=== PATIENT | female | born 1950 | race Caucasian/White ===

== ENCOUNTER → 2018-09-02 17:56 | Outpatient (CLI) | payer MEDICARE, OTHER, SELFPAY ==
[2018-09-02 18:48] LABS: Blood Urea Nitrogen 19 mg/dL (7-17); Calcium 9.6 mg/dL (8.4-10.2); Carbon Dioxide 33 mmol/L (22-32); Chloride 99 mmol/L (98-107); Estimated Glomerular Filt Rate 55.3 mL/min (>60); Glucose 93 mg/dL (80-110); HEMOLYSIS < 15 (0-50); Potassium 3.7 mmol/L (3.4-5.1); Sodium 140 mmol/L (137-145)
== END ==
PROVIDERS: Visit Provider Physician Assistant
DX: I10 Essential (primary) hypertension (principal)
CPT/HCPCS: 36415; 80048

== ENCOUNTER 2018-12-31 06:05 | Emergency (ER) | payer MEDICARE, OTHER, SELFPAY ==
[2018-12-31] VITALS (9 sets, daily range): BP systolic 151–201; BP diastolic 66–99; PULSE 46–71; RESP 13–18; TEMP 36.3; O2SAT 95–99; BMI 34.3
--- NOTE | 2018-12-31 06:15 | DI.RAD.S_ITS ---
PROCEDURE: XR CHEST 1V INDICATIONS: chest pain TECHNIQUE: One view of the chest was acquired. COMPARISON: [facility], , CHEST 1 VIEW, 03/15/2017, 8:26. FINDINGS: Surgical changes and devices: None. Lungs and pleura: Lungs are clear. No pleural effusions or pneumothorax. Mediastinum: Mediastinal contours appear normal. Heart size is normal. Bones and chest wall: No suspicious bony lesions. Degenerative spurring of the thoracic spine. Overlying soft tissues appear unremarkable. IMPRESSION: No acute cardiopulmonary disease. Dictated by: Edelmira Weiss M.D. on 12/31/2018 at 7:57 Approved by: Edelmira Weiss M.D. on 12/31/2018 at 7:58
--- NOTE | 2018-12-31 06:21 | ED_ITS ---
HPI - Chest Pain <Kalina Dodson DO - Last Filed: 12/31/18 07:31> General Chief Complaint: Chest Pain Stated Complaint: THINKS HEART ATTACK ACHE LEFT ARM/ODD FEELING CHES Time Seen by Provider: 12/31/18 06:09 Source: patient Mode of arrival: Ambulatory Limitations: no limitations History of Present Illness HPI narrative: Patient is a 68-year-old female with history of hypertension who presents with chest discomfort. She says she was driving to [place] when she felt fluttering in her chest. She denies any actual pain she just has some discomfort are chest and neck. She denies any shortness of breath she does feel nauseous. He denies any abdominal pain no dizziness or lightheadedness. She has never felt this before. No known history of coronary artery disease. MD complaint: chest pain Onset (ago): minute(s) Duration: constant Onset: during rest Pain radiation: none Relieving factors: nothing Related Data Home Medications Medication Instructions Recorded Confirmed aspirin 325 mg PO QDAY #0 03/15/17 09/02/18 lisinopril 40 mg PO QDAY #0 03/15/17 09/02/18 Previous Rx's Medication Instructions Recorded chlorthalidone 25 mg tablet 25 mg PO DAILY #30 tab 09/02/18 Allergies Allergy/AdvReac Type Severity Reaction Status Date / Time No Known Allergies Allergy Verified 12/31/18 06:20 Review of Systems <DO Boo Finnegan Last Filed: 12/31/18 07:31> Review of Systems Narrative: GENERAL: Denies chills, fatigue, malaise, fever, sweats, travel HEENT: Denies sinus pain, ear pain, sore throat, difficulty swallowing, neck pain RESPIRATORY: Denies dyspnea, cough, wheezing, hemoptysis, sputum. CARDIOVASCULAR: See HPI GASTROINTESTINAL: Denies nausea, vomiting, abdominal pain, diarrhea, constipation, melena. : Denies dysuria, frequency, incontinence, hematuria, urinary retention, flank pain. MUSCULOSKELETAL: Denies weakness, joint pain, or bony pain SKIN: No rash, no erythema, no pruritus NEUROLOGIC: Denies weakness, dizziness, headache, numbness, change in speech, confusion PSYCHIATRIC: No concerning psychosocial issues. 12 point review of systems is negative except for those stated above and HPI PFSH <Kalina Dodson DO - Last Filed: 12/31/18 07:31> Medical History Chest pain (Acute) Hypertension (Inactive) Social History Smoking Status: Never smoker Social History (Updated 12/31/18 @ 06:30 by Kalina Dodson DO) Smoking Status: Never smoker alcohol intake: never substance use type: does not use Exam <DO Boo Finnegan Last Filed: 12/31/18 07:31> Initial Vital Signs Initial Vital Signs: Vital Signs Blood Pressure 201/94 H 12/31/18 06:25 GENERAL: Well-appearing, well-nourished and in no acute distress. HEENT: Head atraumatic,EOMI, pupils reactive, face symmetric, moist mucous membranes CARDIOVASCULAR: Regular rate and rhythm without murmurs, rubs or gallops. RESPIRATORY: Breath sounds equal bilaterally, no wheezes rales or rhonchi. ABDOMEN: Soft, nontender. Normoactive bowel sounds all 4 quadrants. No guarding or rebound. EXTREMITIES: Normal range of motion, no clubbing or edema. Neurovascularly intact NEUROLOGICAL: Alert and oriented x4.Normal gait and speech. Cranial nerves II through XII grossly intact. SKIN: Warm, dry, no laceration, no petechiae, no rashes or lesions. <García Cross DO - Last Filed: 12/31/18 10:09> Initial Vital Signs Initial Vital Signs: Vital Signs Blood Pressure 201/94 H 12/31/18 06:25 Scores <Kalina Dodson DO - Last Filed: 12/31/18 07:31> HEART Score Heart Score history: Slightly Suspicious Heart Score EKG: Normal Heart Score Age: > or = 65 years old Heart Score risk factors: 1-2 risk factors Heart Score troponin: < or = to normal limit Heart Score Total: 3 Course <DO Boo Finnegan Last Filed: 12/31/18 07:31> Orders Ordered: ED Orders 12/31/18 06:15 XR chest 1V Stat EKG-12 Lead Stat 12/31/18 06:19 Complete Blood Count AUTO DIFF Stat Comprehensive Metabolic Panel Stat Lipase Stat Troponin & CK Cardiac Panel Stat 12/31/18 09:06 Troponin I Stat Discontinued Medications Aspirin (Aspirin Chew) 324 mg PO NOW ONE Stop: 09/20/19 06:16 Last Admin: 12/31/18 06:25 Dose: 324 mg Documented by: KAYLA Sodium Chloride (Normal Saline 0.9%) 1,000 mls @ 150 mls/hr IV CONT JERICHO Last Infusion: 12/31/18 10:02 Dose: 0 mls/hr Documented by: Admin: 12/31/18 07:13 Dose: 150 mls/hr Documented by: GREGORIA Nitroglycerin (Nitrostat) 0.4 mg SL [id number] PRN PRN Reason: Chest Pain Last Admin: 12/31/18 06:37 Dose: 0.4 mg Documented by: Admin: 12/31/18 06:30 Dose: 0.4 mg Documented by: Admin: 12/31/18 06:25 Dose: 0.4 mg Documented by: KAYLA Vital Signs Vital signs: Vital Signs - 8 hr 12/31/18 06:25 12/31/18 06:30 12/31/18 06:34 Temperature 97.3 F L Pulse Rate 69 Respiratory Rate 18 Blood Pressure 201/94 H 185/90 H 201/94 H Blood Pressure [Left Wrist] Pulse Oximetry 95 12/31/18 06:37 12/31/18 06:45 12/31/18 07:00 Temperature Pulse Rate 71 48 L Respiratory Rate 18 18 Blood Pressure 151/99 H Blood Pressure [Left Wrist] 153/91 H 156/80 H Pulse Oximetry 99 97 12/31/18 08:19 12/31/18 09:54 12/31/18 10:02 Temperature Pulse Rate 47 L 47 L 46 L Respiratory Rate 14 13 15 Blood Pressure 188/73 H Blood Pressure [Left Wrist] 164/66 H 188/73 H Pulse Oximetry 97 99 98 <García Cross, DO - Last Filed: 12/31/18 10:09> Course Course Narrative: Received in sign-out from Dr. Dodson. Independently reviewed history, physical and physical exam. Patient continues to be symptom-free Orders Ordered: ED Orders 12/31/18 06:15 XR chest 1V Stat EKG-12 Lead Stat 12/31/18 06:19 Complete Blood Count AUTO DIFF Stat Comprehensive Metabolic Panel Stat Lipase Stat Troponin & CK Cardiac Panel Stat 12/31/18 09:06 Troponin I Stat Discontinued Medications Aspirin (Aspirin Chew) 324 mg PO NOW ONE Stop: 12/31/18 06:16 Last Admin: 12/31/18 06:25 Dose: 324 mg Documented by: KAYLA Sodium Chloride (Normal Saline 0.9%) 1,000 mls @ 150 mls/hr IV CONT JERICHO Last Infusion: 12/31/18 10:02 Dose: 0 mls/hr Documented by: Admin: 12/31/18 07:13 Dose: 150 mls/hr Documented by: GREGORIA Nitroglycerin (Nitrostat) 0.4 mg SL [id number] PRN PRN Reason: Chest Pain Last Admin: 12/31/18 06:37 Dose: 0.4 mg Documented by: Admin: 12/31/18 06:30 Dose: 0.4 mg Documented by: Admin: 12/31/18 06:25 Dose: 0.4 mg Documented by: KAYLA Vital Signs Vital signs: Vital Signs - 8 hr 12/31/18 06:25 12/31/18 06:30 12/31/18 06:34 Temperature 97.3 F L Pulse Rate 69 Respiratory Rate 18 Blood Pressure 201/94 H 185/90 H 201/94 H Blood Pressure [Left Wrist] Pulse Oximetry 95 12/31/18 06:37 12/31/18 06:45 12/31/18 07:00 Temperature Pulse Rate 71 48 L Respiratory Rate 18 18 Blood Pressure 151/99 H Blood Pressure [Left Wrist] 153/91 H 156/80 H Pulse Oximetry 99 97 12/31/18 08:19 12/31/18 09:54 12/31/18 10:02 Temperature Pulse Rate 47 L 47 L 46 L Respiratory Rate 14 13 15 Blood Pressure 188/73 H Blood Pressure [Left Wrist] 164/66 H 188/73 H Pulse Oximetry 97 99 98 MDM - Chest Pain <Kalina Dodson DO - Last Filed: 12/31/18 07:31> Lab Data Attestation: I reviewed the patient's lab results. Result diagrams: 12/31/18 06:19 12/31/18 06:19 Labs: Lab Results 12/31/18 12/31/18 12/31/18 Range/Units 06:19 06:19 09:06 WBC 7.3 (4.5-11.0) X10^3/uL RBC 5.51 H (4.0-5.2) X10^6/uL Hgb 15.7 (12.0-16.0) g/dL Hct 45.8 (36-46) % MCV 83.2 (80-100) fL MCH 28.4 (26-34) PG MCHC 34.2 (30-36) % RDW 13.5 (11.6-14.8) % Plt Count 263 (150-400) X10^3/uL Neut % (Auto) 55.0 (50-75) % Lymph % (Auto) 33.2 (25-40) % [place] % (Auto) 8.2 (3-14) % Eos % (Auto) 2.9 (2-4) % Baso % (Auto) 0.7 (0-2) % Neut # (Auto) 4000 (2325-2961) /uL Lymph # (Auto) 2400 (6236-7475) /uL [place] # (Auto) 600 (0-900) /uL Eos # (Auto) 200 (0-450) /uL Baso # (Auto) 100 (0-100) /uL Sodium 143 (137-145) mmol/L Potassium 3.6 (3.4-5.1) mmol/L Chloride 101 (98-107) mmol/L Carbon Dioxide 31 (22-32) mmol/L BUN 12 (7-17) mg/dL Creatinine 0.70 (0.52-1.04) mg/dL Estimated GFR > 60.0 (>60) mL/min BUN/Creatinine Ratio 17.1 (6-22) Glucose 120 H (80-110) mg/dL Calcium 9.5 (8.4-10.2) mg/dL Total Bilirubin 1.0 (0.2-1.3) mg/dL AST 29 (14-36) IU/L ALT 17 (9-52) IU/L Alkaline Phosphatase 63 (38-126) U/L Total Creatine Kinase 89 (30-135) U/L CK-MB (CK-2) TNP CK-MB (CK-2) Rel Index TNP Troponin I < 0.012 < 0.012 (0.01-0.034) ng/mL Total Protein 8.4 H (6.3-8.2) g/dL Albumin 4.6 (3.5-5.0) g/dL Globulin 3.8 (1.7-4.1) g/dL Albumin/Globulin Ratio 1.2 (1.0-2.8) Lipase 185 (23-300) U/L ECG Data Attestation: I personally reviewed and interpreted this ECG as follows: Prior ECG tracings: available for review Interpretation: EKG 1.: Normal sinus rhythm rate 56 p.r. interval 178 QRS 94 QTC 464 T-wave inversion noted in aVL similar to previous EKG EKG 2. Normal sinus rhythm no changes from prior MDM Narrative Medical decision making narrative: The patient initially feeling fluttering and chest abnormality, she is known to have extremely high blood pressure which is not controlled. She received 3 nitroglycerin full which did help with her blood pressure and improved her symptoms mildly. Signed out to Dr. Cross. <García Cross DO - Last Filed: 12/31/18 10:09> Lab Data Labs: Lab Results 12/31/18 12/31/18 12/31/18 Range/Units 06:19 06:19 09:06 WBC 7.3 (4.5-11.0) X10^3/uL RBC 5.51 H (4.0-5.2) X10^6/uL Hgb 15.7 (12.0-16.0) g/dL Hct 45.8 (36-46) % MCV 83.2 (80-100) fL MCH 28.4 (26-34) PG MCHC 34.2 (30-36) % RDW 13.5 (11.6-14.8) % Plt Count 263 (150-400) X10^3/uL Neut % (Auto) 55.0 (50-75) % Lymph % (Auto) 33.2 (25-40) % [place] % (Auto) 8.2 (3-14) % Eos % (Auto) 2.9 (2-4) % Baso % (Auto) 0.7 (0-2) % Neut # (Auto) 4000 (5966-1599) /uL Lymph # (Auto) 2400 (5549-0884) /uL [place] # (Auto) 600 (0-900) /uL Eos # (Auto) 200 (0-450) /uL Baso # (Auto) 100 (0-100) /uL Sodium 143 (137-145) mmol/L Potassium 3.6 (3.4-5.1) mmol/L Chloride 101 (98-107) mmol/L Carbon Dioxide 31 (22-32) mmol/L BUN 12 (7-17) mg/dL Creatinine 0.70 (0.52-1.04) mg/dL Estimated GFR > 60.0 (>60) mL/min BUN/Creatinine Ratio 17.1 (6-22) Glucose 120 H (80-110) mg/dL Calcium 9.5 (8.4-10.2) mg/dL Total Bilirubin 1.0 (0.2-1.3) mg/dL AST 29 (14-36) IU/L ALT 17 (9-52) IU/L Alkaline Phosphatase 63 (38-126) U/L Total Creatine Kinase 89 (30-135) U/L CK-MB (CK-2) TNP CK-MB (CK-2) Rel Index TNP Troponin I < 0.012 < 0.012 (0.01-0.034) ng/mL Total Protein 8.4 H (6.3-8.2) g/dL Albumin 4.6 (3.5-5.0) g/dL Globulin 3.8 (1.7-4.1) g/dL Albumin/Globulin Ratio 1.2 (1.0-2.8) Lipase 185 (23-300) U/L Discharge Plan Departure Patient Disposition: Home Clinical Impression: Atypical chest pain Chest pain Qualifiers: Chest pain type: unspecified Qualified Code(s): R07.9 - Chest pain, unspecified Hypertension Qualifiers: Hypertension type: unspecified Qualified Code(s): I10 - Essential (primary) hypertension Discharge Date/Time: 12/31/18 10:03 Instructions: DI for Atypical Chest Pain Activity Restrictions/Additional Instructions: *You have been diagnosed with [chest pain, your EKGs and blood work are very reassuring but follow-up is needed] *What to do: * please continue to take medications as directed: *Follow up with your primary care provider in 2-3 days, call for an appointment. Let them know you were seen in the Emergency Department and that we ask that you be seen in follow up. Additionally, I have included contact information for the manager service desk you requested *Return to ER if you should have any new, worsening or concerning symptoms, such as [increasing or more persistent discomfort, worsening shortness of breath, fever over 101 F, or other bothersome symptoms] Prescriptions: No Action chlorthalidone 25 mg tablet 25 mg PO DAILY Qty: 30 RF: 0 aspirin 325 MG tablet 325 mg PO QDAY Qty: 0 RF: 0 lisinopril 20 MG tablet 40 mg PO QDAY Qty: 0 RF: 0 Referrals: [facility] [Outside] Agustin Marx MD [Physician] -
[2018-12-31] MEDS: ASPIRIN 81 MG CHEW TAB 324 MG PO (06:25)
[2018-12-31] MEDS: NITROGLYCERIN 0.4 MG SL TAB SL ×3 (06:25→06:37)
[2018-12-31 06:30] LABS: Add Manual Diff / Slide Review NO; Basophils Absolute Auto 100 /uL (0-100); Basophils Percent Auto 0.7 % (0-2); Eosinophils Absolute Auto 200 /uL (0-450); Eosinophils Percent Auto 2.9 % (2-4); Hematocrit 45.8 % (36-46); Hemoglobin 15.7 g/dL (12.0-16.0); Lymphocytes Absolute Auto 2400 /uL (1100-4500); Lymphocytes Percent Auto 33.2 % (25-40); Mean Corpuscular HGB Conc 34.2 % (30-36); Mean Corpuscular Hemoglobin 28.4 PG (26-34); Mean Corpuscular Volume 83.2 fL (80-100); Monocytes Absolute Auto 600 /uL (0-900); Monocytes Percent Auto 8.2 % (3-14); Neutrophils Absolute Auto 4000 /uL (1500-7000); Platelet Count 263 X10^3/uL (150-400); Red Blood Cell Count 5.51 X10^6/uL (4.0-5.2); Red Cell Distribution Width 13.5 % (11.6-14.8); White Blood Cell Count 7.3 X10^3/uL (4.5-11.0)
[2018-12-31 06:42] LABS: Alanine Aminotransferase 17 IU/L (9-52); Albumin 4.6 g/dL (3.5-5.0); Albumin Globulin Ratio 1.2 (1.0-2.8); Alkaline Phosphatase 63 U/L (38-126); Aspartate Aminotransferase 29 IU/L (14-36); BUN Creatinine Ratio 17.1 (6-22); Blood Urea Nitrogen 12 mg/dL (7-17); Calcium 9.5 mg/dL (8.4-10.2); Carbon Dioxide 31 mmol/L (22-32); Chloride 101 mmol/L (98-107); Creatine Kinase 89 U/L (30-135); Estimated Glomerular Filt Rate > 60.0 mL/min (>60); Globulin 3.8 g/dL (1.7-4.1); Glucose 120 mg/dL (80-110); HEMOLYSIS < 15 (0-50); Lipase 185 U/L (23-300); Potassium 3.6 mmol/L (3.4-5.1); Sodium 143 mmol/L (137-145); Total Protein 8.4 g/dL (6.3-8.2)
[2018-12-31 06:53] LABS: Troponin I < 0.012 ng/mL (0.01-0.034)
[2018-12-31] MEDS: SODIUM CHLORIDE 0.9% 1,000 ML 150 ML IV (07:13)
[2018-12-31 09:37] LABS: Troponin I < 0.012 ng/mL (0.01-0.034)
== END 2018-12-31 10:03 | disposition home or self-care (01) ==
PROVIDERS: Emergency Medicine; Emergency Provider Emergency Medicine
DX: R07.9 Chest pain, unspecified (principal); I10 Essential (primary) hypertension
CPT/HCPCS: 36415; 36591; 71045; 80053; 82550; 83690; 84484; 85025; 93005; 96360; 96361; 99283; 99285

== ENCOUNTER → 2020-11-26 11:59 | Outpatient (CLI) | payer MEDICARE, OTHER, SELFPAY ==
--- NOTE | 2020-11-26 | DI.MRI.S_ITS ---
PROCEDURE: MR KNEE LT WO CON INDICATIONS: Pain in left knee TECHNIQUE: Noncontrast sagittal PD fast spin echo and T2 fast spin echo with fat saturation, sagittal 3-D FLASH with fat saturation; coronal T1 spin echo and PD fast spin echo with fat saturation, and axial PD fast spin echo with fat saturation through the knee. COMPARISON: [facility], CR, XR KNEE 4+ VIEWS LEFT, 10/08/2020, 10:36. FINDINGS: Image quality: Excellent. Menisci: Medial extrusion of the medial meniscus is present. Linear and amorphous high signal intensity within the medial meniscal body and posterior horn is present demonstrating superior and inferior articular surface extension. Lateral meniscus is intact. Cruciate ligaments: The anterior and posterior cruciate ligaments appear intact. Medial structures: The medial collateral ligament appears intact. Mild T2 signal elevation surrounds the medial collateral ligament. Visualized portions of the pes anserinus tendons appear normal. No abnormal bursal fluid. Lateral structures: The lateral collateral ligament, long and short heads of the biceps femoris tendon appear intact. The popliteus tendon appears normal. Iliotibial band appears normal. Anterior structures: The quadriceps and patellar tendons appear intact. Patellar alignment is normal. No femoral trochlear dysplasia or ventral trochlear prominence. No edema in the infrapatellar fat pad. Bones and cartilage: No bone marrow contusions or fractures. Mild subchondral degenerative marrow edema within the mid and posterior weight-bearing aspects of the medial femoral condyle and medial tibial plateau. Mild subchondral degenerative marrow edema within the medial and lateral patellar facets. Moderate tricompartmental periarticular osteophyte formation. Severe articular cartilage loss diffusely overlies the weight-bearing aspects of the medial femoral condyle and medial tibial plateau. Mild articular cartilage loss diffusely overlies the weight-bearing aspects of the lateral femoral condyle and lateral tibial plateau. Moderate articular cartilage loss overlies the medial and lateral patellar facets with superimposed high-grade articular cartilage loss overlying the medial patellar apex and adjacent aspect of the medial patellar facet. Joint space: There is a moderate knee joint effusion and a trace Soto's cyst. Normal appearing synovial plicae are incidentally noted. IMPRESSION: 1. Tricompartmental osteoarthritis with associated articular cartilage loss. 2. Complex tearing of the medial meniscus. 3. MCL strain. 4. Knee joint effusion and Soto's cyst. Dictated by: Dutch Buck M.D. on 11/26/2020 at 14:22 Approved by: Dutch Buck M.D. on 11/26/2020 at 14:25
== END ==
PROVIDERS: PCP Family Medicine; Referring Provider Orthopaedic Surgery; Visit Provider Orthopaedic Surgery
DX: S83.232A Complex tear of medial meniscus, current injury, left knee, initial encounter (principal); S83.412A Sprain of medial collateral ligament of left knee, initial encounter; M25.562 Pain in left knee; M17.12 Unilateral primary osteoarthritis, left knee; M25.462 Effusion, left knee; M71.22 Synovial cyst of popliteal space [Baker], left knee
CPT/HCPCS: 73721

== ENCOUNTER → 2021-02-21 15:10 | Outpatient (CLI) | payer MEDICARE, OTHER, SELFPAY ==
[2021-02-21 15:59] LABS: BUN Creatinine Ratio 19.8 (6-22); Blood Urea Nitrogen 21 mg/dL (7-17); Calcium 9.5 mg/dL (8.4-10.2); Carbon Dioxide 32 mmol/L (22-32); Chloride 99 mmol/L (98-107); Estimated Glomerular Filt Rate 51.4 mL/min (>60); Glucose 154 mg/dL (80-110); HEMOLYSIS < 15 (0-50); Potassium 3.8 mmol/L (3.4-5.1); Sodium 140 mmol/L (137-145)
[2021-02-21 16:28] LABS: Cortisol Random 11.7 ug/dL
[2021-02-27 22:09] LABS: Aldosterone/Renin Activity Rat 4.9 (0.0-30.0); Plama Renin, LC/MS/MS 1.486 ng/mL/hr (0.167-5.380)
== END ==
PROVIDERS: PCP Family Medicine; Referring Provider Internal Medicine Cardiovascular Disease; Visit Provider Internal Medicine Cardiovascular Disease
DX: I10 Essential (primary) hypertension (principal); Z01.810 Encounter for preprocedural cardiovascular examination; I51.7 Cardiomegaly
CPT/HCPCS: 36415; 80048; 82088; 82384; 82533; 84244

== ENCOUNTER → 2021-02-23 15:51 | Outpatient (CLI) | payer MEDICARE, OTHER, SELFPAY ==
[2021-02-23 17:50] LABS: Collection Time Urine 24 Hours; Creatinine 24 Hour Urine 1231 mg/day (800-1800); Creatinine Urine Random 123.1 mg/dL; Total Volume Urine 1000 mL
[2021-03-05 08:13] LABS: Creatinine, 24 Urine 1217 mg/24 hr (800-1800); Creatinine,Urine 121.7 mg/dL (Not Estab.); Dopamine, Ur 24hr 169 ug/24 hr (0-510); Epinephrine, U 24hr 2 ug/24 hr (0-20); Norepinephrine Ur 24hr 65 ug/24 hr (0-135)
== END ==
PROVIDERS: PCP Family Medicine; Referring Provider Internal Medicine Cardiovascular Disease; Visit Provider Internal Medicine Cardiovascular Disease
DX: I10 Essential (primary) hypertension (principal); Z01.810 Encounter for preprocedural cardiovascular examination; I51.7 Cardiomegaly
CPT/HCPCS: 82384; 82570

== ENCOUNTER → 2021-05-13 13:58 | Outpatient (CLI) | payer MEDICARE, OTHER, SELFPAY ==
[2021-05-13 14:46] LABS: BUN Creatinine Ratio 18.9 (6-22); Blood Urea Nitrogen 20 mg/dL (7-17); Calcium 9.4 mg/dL (8.4-10.2); Carbon Dioxide 31 mmol/L (22-32); Chloride 103 mmol/L (98-107); Estimated Glomerular Filt Rate 51.2 mL/min (>60); Glucose 130 mg/dL (80-110); HEMOLYSIS < 15 (0-50); Potassium 4.3 mmol/L (3.4-5.1); Sodium 140 mmol/L (137-145)
== END ==
PROVIDERS: PCP Family Medicine; Referring Provider Urology; Visit Provider Urology
DX: N05.9 Unspecified nephritic syndrome with unspecified morphologic changes (principal)
CPT/HCPCS: 36415; 80048

== ENCOUNTER → 2022-11-21 11:45 | Outpatient (CLI) | payer MEDICARE, OTHER, SELFPAY ==
--- NOTE | 2022-11-21 | DI.MRI.S_ITS ---
PROCEDURE: MR LUMBAR SPINE WO CON INDICATIONS: Low back pain TECHNIQUE: Noncontrast sagittal T1 spin echo and T2 fast echo, sagittal STIR, and T2 fast spin echo through the lumbar spine. In cases with scoliosis, additional coronal T2 fast spin echo may be performed. COMPARISON: None. FINDINGS: Image quality: Excellent. Alignment and Curvature: Dextroscoliosis of the lumbar spine with the right apex at L1-2 and on the right at L1-2 and L3-4. Bone Marrow: Marrow is of normal overall signal. No acute vertebral body compression fractures. Spinal Cord: Conus medullaris terminates at the L1 level. Visualized cord demonstrates normal signal and size. Left Paraspinous Soft Tissues: No paravertebral masses. T12-L1: No significant disc bulge. The foramina and central canal are patent. L1-L2: Diffuse disc bulge asymmetric to the left with disc space narrowing and disc osteophytes on the left. Facet arthropathy on the left. Severe left foraminal stenosis. The right foramen is patent. The central canal is patent. Modic type 2 endplate changes. L2-L3: Diffuse disc bulge asymmetric to the left with disc space narrowing and disc osteophytes on the left. Left foraminal disc protrusion. Facet hypertrophy on the left. Severe left foraminal stenosis. The right foramen is patent. The central canal has mild stenosis. Modic type 1 endplate changes. L3-L4: Diffuse disc bulge. Mild facet hypertrophy bilaterally. Mild left and moderate right foraminal stenosis. The central canal has mild stenosis. L4-L5: Diffuse disc bulge asymmetric to the right with disc space narrowing and disc osteophytes on the right. Facet hypertrophy on the right. Severe right foraminal stenosis. Mild left foraminal stenosis. Modic type 2 endplate changes. L5-S1: No significant disc bulge. The foramina and central canal are patent. IMPRESSION: 1. Dextroscoliosis with the right apex at L1-2. 2. Multilevel diffuse disc bulges related to dextroscoliosis and causing multilevel foraminal stenosis as detailed above. 3. Mild central canal stenosis at L1-2, L2-3, and L3-4. Dictated by: Taran Schmidt M.D. on 11/21/2022 at 14:34 Approved by: Taran Schmidt M.D. on 11/21/2022 at 14:44
== END ==
PROVIDERS: Referring Provider Orthopaedic Surgery Orthopaedic Surgery of the Spine; Visit Provider Orthopaedic Surgery Orthopaedic Surgery of the Spine
DX: M51.36 Other intervertebral disc degeneration, lumbar region (principal); M48.061 Spinal stenosis, lumbar region without neurogenic claudication; M41.9 Scoliosis, unspecified; M54.50 Low back pain, unspecified
CPT/HCPCS: 72148

== ENCOUNTER → 2023-01-23 13:21 | Outpatient (CLI) | payer MEDICARE, OTHER, SELFPAY ==
[2023-01-23 15:03] LABS: Add Manual Diff / Slide Review NO; Basophils Absolute Auto 0 /uL (0-100); Basophils Percent Auto 0.3 % (0-2); Eosinophils Absolute Auto 200 /uL (0-450); Eosinophils Percent Auto 3.6 % (2-4); Lymphocytes Absolute Auto 1800 /uL (1100-4500); Lymphocytes Percent Auto 26.6 % (25-40); Mean Corpuscular HGB Conc 33.4 % (30-36); Mean Corpuscular Hemoglobin 28.3 PG (26-34); Mean Corpuscular Volume 84.5 fL (80-100); Monocytes Absolute Auto 500 /uL (0-900); Monocytes Percent Auto 7.8 % (3-14); Neutrophils Absolute Auto 4100 /uL (1500-7000); Neutrophils Percent Auto 61.7 % (50-75); Platelet Count 267 X10^3/uL (150-400); Red Blood Cell Count 5.32 X10^6/uL (4.0-5.2); Red Cell Distribution Width 13.3 % (11.6-14.8); White Blood Cell Count 6.6 X10^3/uL (4.5-11.0)
[2023-01-23 15:30] LABS: BUN Creatinine Ratio 21.5 (6-22); Blood Urea Nitrogen 23 mg/dL (7-17); Calcium 9.4 mg/dL (8.4-10.2); Carbon Dioxide 31 mmol/L (22-32); Chloride 101 mmol/L (98-107); Estimated Glomerular Filt Rate 56 mL/min (>60); Glucose 110 mg/dL (80-110); HEMOLYSIS < 15 (0-50); Potassium 3.5 mmol/L (3.4-5.1); Sodium 141 mmol/L (137-145)
[2023-01-23 16:34] LABS: Hemoglobin A1C% w Est Avg Glu 5.7 % (4.0-6.0)
== END ==
PROVIDERS: Referring Provider Orthopaedic Surgery Orthopaedic Surgery of the Spine; Visit Provider Orthopaedic Surgery Orthopaedic Surgery of the Spine
DX: Z01.818 Encounter for other preprocedural examination (principal); R73.9 Hyperglycemia, unspecified; Z01.812 Encounter for preprocedural laboratory examination
CPT/HCPCS: 36415; 80048; 83036; 85025; 93005

== ENCOUNTER 2023-03-21 00:06 | Emergency (ER) | payer MEDICARE, OTHER, SELFPAY ==
[2023-03-21 00:25] VITALS: BP 150/50; PULSE 62; RESP 20; TEMP 36.3; O2SAT 98; BMI 34.3
--- NOTE | 2023-03-21 00:30 | PC.NURSE ---
see triage note for assessment, at present pt is aao x 3, vss, skin pink warm and dry
--- NOTE | 2023-03-21 00:51 | ED_ITS ---
HPI - Nausea/Vomiting/Diarrhea General Chief complaint: Nausea/Vomiting/Diarrhea Stated complaint: ABD pain NV Time Seen by Provider: 03/21/23 00:17 Source: patient and EMS Mode of arrival: EMS History of Present Illness HPI Narrative: Patient is a 73-year-old female. Over the past 24 hours she is had multiple episodes of diarrhea with bright red blood an also episodes of vomiting. The vomiting seems to happen when she is trying to have a bowel movement. She does have some generalized abdominal pain. No urinary symptoms. No fevers. No recent travel. No recent antibiotics. No other members of the household are having symptoms. She has had a colonoscopy within the past 3 years. She states that there were no abnormalities to it. She is not currently nauseous. Related Data Home Medications Medication Instructions Recorded Confirmed aspirin 325 mg tablet 325 mg PO QDAY ##0 03/15/17 09/02/18 lisinopril 20 mg tablet 40 mg PO QDAY ##0 03/15/17 09/02/18 Previous Rx's Medication Instructions Recorded chlorthalidone 25 mg tablet 25 mg PO DAILY hypertension #30 09/02/18 tabs Allergies Allergy/AdvReac Type Severity Reaction Status Date / Time No Known Allergies Allergy Verified 12/31/18 06:20 Review of Systems Constitutional Constitutional: Reports system reviewed and no additional complaints, except as documented Cardiovascular Cardiovascular: Reports system reviewed and no additional complaints, except as documented Respiratory Respiratory: Reports system reviewed and no additional complaints, except as documented Gastrointestinal Gastrointestinal: Reports system reviewed and no additional complaints, except as documented Genitourinary Genitourinary: Reports system reviewed and no additional complaints, except as documented Integumentary/Breasts Skin/Breast: Reports system reviewed and no additional complaints, except as documented Hematologic/Lymphatic On Anticoagulants: No Patient History Medical History Chest pain Hypertension Social History Smoking Status: Never smoker alcohol intake: never substance use type: does not use Smoking Status: Never smoker alcohol intake frequency: holidays/special occasions only Substance Use Type: does not use Exam Initial Vital Signs Initial Vital Signs: Vital Signs Temperature 97.4 F L 03/21/23 00:25 Pulse Rate 62 03/21/23 00:25 Respiratory Rate 20 03/21/23 00:25 Blood Pressure 150/50 H 03/21/23 00:25 Pulse Oximetry 98 03/21/23 00:25 Oxygen Delivery Method Room Air 03/21/23 00:25 HENMT Head: normal to inspection and normocephalic Resp Effort & Inspection: normal respiratory effort Auscultation: clear to auscultation bilaterally Cardio Rate: regular rate GI Inspection: normal to inspection and non-distended Palpation: soft, No firm, No guarding and tender Neuro General: patient alert, patient awake and moves all extremities Course Orders Ordered: ED Orders 03/21/23 00:51 CT abdomen pelvis w con Stat 03/21/23 01:25 Complete Blood Count AUTO DIFF Stat Comprehensive Metabolic Panel Stat Lipase Stat Discontinued Medications Sodium Chloride (Normal Saline 0.9%) 1,000 mls @ 1,000 mls/hr IV BOLUS ONE Stop: 03/21/23 01:32 Last Admin: 03/21/23 01:11 Dose: 1,000 mls/hr Documented By: LOLI Vital Signs Vital signs: Vital Signs - 8 hr 03/21/23 00:25 Temperature 97.4 F L Pulse Rate 62 Respiratory Rate 20 Blood Pressure 150/50 H Pulse Oximetry 98 Oxygen Delivery Method Room Air MDM - Nausea/Vomiting/Diarrhea Lab Data Attestation: I reviewed the patient's lab results. 03/21/23 01:25 03/21/23 01:25 Labs: Lab Results 03/21/23 Range/Units 01:25 WBC 16.4 H (4.5-11.0) X10^3/uL RBC 5.07 (4.0-5.2) X10^6/uL Hgb 14.3 (12.0-16.0) g/dL Hct 42.8 (36-46) % MCV 84.3 (80-100) fL MCH 28.2 (26-34) PG MCHC 33.5 (30-36) % RDW 13.5 (11.6-14.8) % Plt Count 246 (150-400) X10^3/uL Neut % (Auto) 82.7 H (50-75) % Lymph % (Auto) 8.0 L (25-40) % [place] % (Auto) 8.3 (3-14) % Eos % (Auto) 0.4 L (2-4) % Baso % (Auto) 0.6 (0-2) % Neut # (Auto) 11962 H (0550-1042) /uL Lymph # (Auto) 1300 (3868-9768) /uL [place] # (Auto) 1400 H (0-900) /uL Eos # (Auto) 100 (0-450) /uL Baso # (Auto) 100 (0-100) /uL Sodium 137 (137-145) mmol/L Potassium 3.7 (3.4-5.1) mmol/L Chloride 101 (98-107) mmol/L Carbon Dioxide 27 (22-32) mmol/L BUN 22 H (7-17) mg/dL Creatinine 1.52 H (0.52-1.04) mg/dL Estimated GFR 36 L (>60) mL/min BUN/Creatinine Ratio 14.5 (6-22) Glucose 135 H (80-110) mg/dL Calcium 9.4 (8.4-10.2) mg/dL Total Bilirubin 1.8 H (0.2-1.3) mg/dL AST 25 (14-36) IU/L ALT 17 (<35) IU/L Alkaline Phosphatase 55 (38-126) U/L Total Protein 8.0 (6.3-8.2) g/dL Albumin 4.3 (3.5-5.0) g/dL Globulin 3.7 (1.7-4.1) g/dL Albumin/Globulin Ratio 1.2 (1.0-2.8) Lipase 73 (23-300) U/L Imaging Data CT scan - abdomen/pelvis: Radiologist's Impression: Multifocal infectious/inflammatory colitis MDM Narrative Medical decision making narrative: Patient has not had any diarrhea since arrival here in the emergency department. She has a relatively benign exam. Has a leukocytosis but this could be explained because of the vomiting/diarrhea or potentially even the infectious cause causing her symptoms today. There was no indication for surgical consultation. No indication for antibiotics. She did not provide a stool sample for us here in the ER. Patient states that she is tolerating oral intake. Does not need any nausea medications. No indication for admission to the hospital. She was given return precautions and follow-up instructions. She expressed understanding and agreement. Discharge Plan Departure Patient Disposition: Home Clinical Impression: Diarrhea Instructions: Diarrhea Activity Restrictions/Additional Instructions: I do recommend that you increase your fluid intake. It is important that you stay hydrated during this time. If you start to develop worsening symptoms to include worsening abdominal pain or fevers you do need re-evaluated. If your symptoms are not improving the next couple days then contact your primary doctor for further evaluation Prescriptions: No Action chlorthalidone 25 mg tablet 25 mg PO DAILY Qty: 30 0RF aspirin 325 MG tablet 325 mg PO QDAY Qty: 0 lisinopril 20 MG tablet 40 mg PO QDAY Qty: 0 Referrals: ProviderTeodora [Primary Care Provider] - Stand Alone Forms: Patient Portal/API
--- NOTE | 2023-03-21 00:51 | DI.CT.S_ITS ---
PROCEDURE: CT ABDOMEN PELVIS W CON INDICATIONS: Abdominal pain, rectal bleeding and vomiting TECHNIQUE: After the administration of intravenous contrast, axial sections acquired from the lung bases to the pubic symphysis. Coronal and sagittal reformats were performed. For radiation dose reduction, the following was used: automated exposure control, adjustment of mA and/or kV according to patient size. COMPARISON: None. FINDINGS: Image quality: Excellent. Lung bases: Unremarkable. Heart: No significant findings. ABDOMEN: Liver: Hepatic steatosis Gallbladder: Unremarkable. Biliary ducts: Unremarkable. Pancreas: Unremarkable. Spleen: Unremarkable. Adrenal Glands: Unremarkable. Kidneys and Ureters: A few small cystic changes of the bilateral kidneys.. Stomach and Bowel: Diffuse wall thickening of the descending and sigmoid colon with the slight pericolonic inflammatory changes questionable thickening of the distal rectum. Questionable thickening of the stomach and distal esophagus. Peritoneum: No abnormal intraperitoneal fluid. No free air. Ventral Wall: Tiny fat containing umbilical hernia. Abdominal Nodes: No retroperitoneal or mesenteric adenopathy by size criteria. Vessels: Aorta and inferior vena cava are normal in size. PELVIS: Pelvic Organs: Unremarkable. Bladder: Unremarkable. Pelvic Nodes: No enlarged lymph nodes. Miscellaneous: No hernias are seen. Bones: Mild apex right curvature of the lumbar spine. Moderate cervical changes lumbar spine. IMPRESSION: 1. Long segment thickening of the descending colon and possible rectal involvement consistent with inflammatory versus infectious colitis. 2. Hepatic steatosis. 3. Questionable thickening of the stomach and distal esophagus may be inflammatory versus exaggeration secondary to underdistention. Findings are congruent with overnight interpretation. Dictated by: Aaron Simeon M.D. on 03/21/2023 at 8:27 Approved by: Aaron Simeon M.D. on 03/21/2023 at 8:33
[2023-03-21] MEDS: SODIUM CHLORIDE 0.9% 1,000 ML 1000 ML IV (01:11)
[2023-03-21 01:42] LABS: Add Manual Diff / Slide Review NO; Basophils Absolute Auto 100 /uL (0-100); Basophils Percent Auto 0.6 % (0-2); Eosinophils Absolute Auto 100 /uL (0-450); Eosinophils Percent Auto 0.4 % (2-4); Hematocrit 42.8 % (36-46); Hemoglobin 14.3 g/dL (12.0-16.0); Lymphocytes Absolute Auto 1300 /uL (1100-4500); Mean Corpuscular HGB Conc 33.5 % (30-36); Mean Corpuscular Hemoglobin 28.2 PG (26-34); Mean Corpuscular Volume 84.3 fL (80-100); Monocytes Absolute Auto 1400 /uL (0-900); Monocytes Percent Auto 8.3 % (3-14); Neutrophils Absolute Auto 13600 /uL (1500-7000); Neutrophils Percent Auto 82.7 % (50-75); Platelet Count 246 X10^3/uL (150-400); Red Blood Cell Count 5.07 X10^6/uL (4.0-5.2); Red Cell Distribution Width 13.5 % (11.6-14.8); White Blood Cell Count 16.4 X10^3/uL (4.5-11.0)
[2023-03-21 01:51] LABS: Alanine Aminotransferase 17 IU/L (<35); Albumin 4.3 g/dL (3.5-5.0); Albumin Globulin Ratio 1.2 (1.0-2.8); Alkaline Phosphatase 55 U/L (38-126); Aspartate Aminotransferase 25 IU/L (14-36); BUN Creatinine Ratio 14.5 (6-22); Bilirubin Total 1.8 mg/dL (0.2-1.3); Blood Urea Nitrogen 22 mg/dL (7-17); Calcium 9.4 mg/dL (8.4-10.2); Carbon Dioxide 27 mmol/L (22-32); Chloride 101 mmol/L (98-107); Estimated Glomerular Filt Rate 36 mL/min (>60); Globulin 3.7 g/dL (1.7-4.1); Glucose 135 mg/dL (80-110); HEMOLYSIS < 15 (0-50); Lipase 73 U/L (23-300); Potassium 3.7 mmol/L (3.4-5.1); Sodium 137 mmol/L (137-145)
[2023-03-21 03:43] VITALS: BP 192/80; PULSE 80; RESP 18; O2SAT 97
== END 2023-03-21 03:58 | disposition home or self-care (01) ==
PROVIDERS: Emergency Provider Emergency Medicine
DX: K62.5 Hemorrhage of anus and rectum (principal); R19.7 Diarrhea, unspecified; R11.10 Vomiting, unspecified
CPT/HCPCS: 36415; 74177; 80053; 83690; 85025; 99284; Q9967

== ENCOUNTER → 2023-12-18 14:52 | Outpatient (CLI) | payer MEDICARE, OTHER, SELFPAY ==
--- NOTE | 2023-12-18 14:55 | DI.CT.S_ITS ---
PROCEDURE: CT ANGIO ABDOMEN PELVIS INDICATIONS: RESISTANT HYPERTENSION TECHNIQUE: After the administration of intravenous contrast, 2.5 mm sections acquired from the diaphragm to the iliac crests. 10 mm maximum intensity projection (MIP) coronal and sagittal reformats were then performed. For radiation dose reduction, the following was used: automated exposure control. COMPARISON: None. FINDINGS: Image quality: Diagnostic. Abdominal aorta: No aortic aneurysm or evidence of acute aortic syndrome. Mesenteric arteries: Patent without hemodynamically significant stenosis. Renal arteries: Patent without hemodynamically significant stenosis. Less than 30 percent stenosis of the renal ostium, without poststenotic dilation. Lower chest: Unremarkable. ABDOMEN: Liver: No solid mass. Hepatic steatosis. Gallbladder: No radiopaque gallstones or wall thickening. Biliary ducts: No biliary dilation. Pancreas: No ductal dilation. Spleen: Size is within normal limits. Adrenal Glands: No adrenal nodules. Kidneys and Ureters: No hydronephrosis. No solid mass. No complex renal cystic lesion which requires follow up. Stomach and Bowel: Normal colonic caliber, without significant wall thickening. Peritoneum: No abnormal intraperitoneal fluid. No free air. Ventral Wall: No hernia. Abdominal Nodes: No retroperitoneal or mesenteric adenopathy by size criteria. Vessels: Aorta, as above. Normal IVC. PELVIS: Pelvic Organs: Unremarkable. Bladder: Unremarkable. Pelvic Nodes: No enlarged lymph nodes. Miscellaneous: No inguinal hernias are seen. Bones: No aggressive osseous abnormality. Degenerative disc disease of the lumbar spine. Moderate spinal canal narrowing at L2-3. IMPRESSION: Less than 30 percent stenosis of the renal artery ostia, without poststenotic dilation. Findings a not suggest hemodynamically significant stenosis. Consider renal artery ultrasound to evaluate for waveforms and velocities. Dictated by: Jace Valdivia M.D. on 12/20/2023 at 12:03 Approved by: Jace Valdivia M.D. on 12/20/2023 at 12:06
[2023-12-18 15:19] LABS: Estimated Glomerular Filt Rate > 60 mL/min (>60)
== END ==
PROVIDERS: Radiology Diagnostic Radiology; Referring Provider Radiology Vascular & Interventional Radiology; Visit Provider Radiology Vascular & Interventional Radiology
DX: K76.0 Fatty (change of) liver, not elsewhere classified (principal); M51.36 Other intervertebral disc degeneration, lumbar region; I70.1 Atherosclerosis of renal artery; I1A.0 Resistant hypertension
CPT/HCPCS: 36415; 74174; 82565; Q9967

== ENCOUNTER 2024-01-11 00:10 | Emergency (ER) | payer MEDICARE, OTHER, SELFPAY ==
[2024-01-11 00:18] VITALS: BP 236/98; PULSE 61; RESP 16; TEMP 36.6; O2SAT 97; BMI 37.5
--- NOTE | 2024-01-11 00:21 | ED.GENADULT ---
HPI - General Adult General Chief complaint: Abdominal Pain Stated complaint: llq abd pain Time Seen by Provider: 01/11/24 00:11 Source: patient Mode of arrival: Ambulatory Limitations: no limitations History of Present Illness HPI narrative: 73-year-old female who is here for evaluation of what she thinks his constipation. She states she has not had a bowel movement in over a week. Has a pessary small stool since then. No vomiting. States that she was at home strainingTo have bowel movement when she stood. Became somewhat lightheaded. Had some significant abdominal tenderness. She was going to give herself an enema but did not end up doing that and contacted 911 instead. Related Data Home Medications Medication Instructions Recorded Confirmed aspirin 325 mg tablet 325 mg PO QDAY ##0 03/15/17 09/02/18 lisinopril 20 mg tablet 40 mg PO QDAY ##0 03/15/17 09/02/18 Previous Rx's Medication Instructions Recorded chlorthalidone 25 mg tablet 25 mg PO DAILY hypertension #30 09/02/18 tabs Allergies Allergy/AdvReac Type Severity Reaction Status Date / Time No Known Allergies Allergy Verified 12/31/18 06:20 Review of Systems Review of Systems Narrative: See HPI Patient History Medical History Chest pain Hypertension Social History Smoking Status: Never smoker alcohol intake: never substance use type: does not use Smoking Status: Never smoker alcohol intake frequency: holidays/special occasions only Substance Use Type: does not use Exam Initial Vital Signs Initial Vital Signs: Vital Signs Temperature 97.8 F 01/11/24 00:18 Pulse Rate 61 01/11/24 00:18 Respiratory Rate 16 01/11/24 00:18 Blood Pressure 236/98 H 01/11/24 00:18 Pulse Oximetry 97 01/11/24 00:18 Oxygen Delivery Method Room Air 01/11/24 00:18 Const General: cooperative, comfortable and No ill appearing HENMT Head: normal to inspection and normocephalic Resp Effort & Inspection: normal respiratory effort Auscultation: clear to auscultation bilaterally Cardio Rate: regular rate Rhythm: regular rhythm GI Inspection: normal to inspection and non-distended Skin General: no rashes or lesions noted Neuro General: patient alert, patient awake and moves all extremities Extrem General: capillary refill normal Course Orders Ordered: ED Orders 01/11/24 00:15 Complete Blood Count AUTO DIFF Stat Comprehensive Metabolic Panel Stat Lipase Stat 01/11/24 00:21 CT abdomen pelvis w con Stat Discontinued Medications Sodium Biphosphate/Sodium Phosphate (Fleets Enema) 1 each MN NOW ONE Stop: 01/11/24 01:20 Last Admin: 01/11/24 01:40 Dose: 1 each Documented By: LOLI Vital Signs Vital signs: Vital Signs - 8 hr 01/11/24 00:18 01/11/24 00:34 01/11/24 01:00 Temperature 97.8 F Pulse Rate 61 55 L 59 L Respiratory Rate 16 14 15 Blood Pressure 236/98 H Pulse Oximetry 97 96 96 Oxygen Delivery Method Room Air 01/11/24 01:30 01/11/24 01:42 01/11/24 01:56 Temperature Pulse Rate 56 L 68 Respiratory Rate 15 21 Blood Pressure 226/100 H Pulse Oximetry 96 Oxygen Delivery Method Medical Decision Making Lab Data Lab results reviewed: Yes I reviewed the patient's lab results. 01/11/24 00:15 01/11/24 00:15 Labs: Lab Results 01/11/24 Range/Units 00:15 WBC 9.9 (4.5-11.0) X10^3/uL RBC 4.92 (4.0-5.2) X10^6/uL Hgb 14.4 (12.0-16.0) g/dL Hct 42.2 (36-46) % MCV 85.8 (80-100) fL MCH 29.2 (26-34) PG MCHC 34.0 (30-36) % RDW 13.7 (11.6-14.8) % Plt Count 264 (150-400) X10^3/uL Neut % (Auto) 78.8 H (50-75) % Lymph % (Auto) 13.5 L (25-40) % [place] % (Auto) 5.7 (3-14) % Eos % (Auto) 1.5 L (2-4) % Baso % (Auto) 0.5 (0-2) % Neut # (Auto) 7800 H (9467-7604) /uL Lymph # (Auto) 1300 (0278-4292) /uL [place] # (Auto) 600 (0-900) /uL Eos # (Auto) 100 (0-450) /uL Baso # (Auto) 0 (0-100) /uL Sodium 140 (137-145) mmol/L Potassium 3.7 (3.4-5.1) mmol/L Chloride 106 (98-107) mmol/L Carbon Dioxide 26 (22-32) mmol/L BUN 19 H (7-17) mg/dL Creatinine 1.10 H (0.52-1.04) mg/dL Estimated GFR 53 L (>60) mL/min BUN/Creatinine Ratio 17.3 (6-22) Glucose 197 H (80-110) mg/dL Calcium 8.8 (8.4-10.2) mg/dL Total Bilirubin 1.3 (0.2-1.3) mg/dL AST 33 (14-36) IU/L ALT 23 (<35) IU/L Alkaline Phosphatase 39 (38-126) U/L Total Protein 7.3 (6.3-8.2) g/dL Albumin 3.9 (3.5-5.0) g/dL Globulin 3.4 (1.7-4.1) g/dL Albumin/Globulin Ratio 1.1 (1.0-2.8) Lipase 78 (23-300) U/L Imaging Data CT scan - abdomen/pelvis: Radiologist's Impression: PROCEDURE: CT ABDOMEN PELVIS W CON INDICATIONS: LLQ abd pain TECHNIQUE: After the administration of intravenous contrast, axial sections acquired from the lung bases to the pubic symphysis. Coronal and sagittal reformats were performed. For radiation dose reduction, the following was used: automated exposure control, adjustment of mA and/or kV according to patient size. COMPARISON: [facility], CT, CT ABDOMEN PELVIS W CON, 03/21/2023, 2:20. FINDINGS: Image quality: Diagnostic. Lower Chest: No significant findings. ABDOMEN: Liver: No solid mass. Hepatomegaly and moderate hepatic steatosis is seen. Gallbladder: No radiopaque gallstones or gallbladder wall thickening. Biliary ducts: No biliary dilation. Pancreas: No ductal dilation. Spleen: Size is within normal limits. Adrenal Glands: No adrenal nodules. Kidneys and Ureters: No hydronephrosis. No solid mass. No complex renal cystic lesion which requires follow up. Stomach and Bowel: Markedly distended gastric lumen is seen. No gross gastric wall thickening. No small bowel wall thickening. No evidence of bowel obstruction. Normal colonic caliber, without significant wall thickening. Moderate amount of fecal matter is seen in descending colon and sigmoid colon extending to rectum. No abscess collection. Peritoneum: No abnormal intraperitoneal fluid. No free air. Ventral Wall: No significant ventral hernia. Abdominal Nodes: No retroperitoneal or mesenteric adenopathy by size criteria. Vessels: Aorta and inferior vena cava are normal in size. PELVIS: Pelvic Organs: Unremarkable. Bladder: No bladder wall thickening, accounting for underdistention. Pelvic Nodes: No enlarged lymph nodes. Miscellaneous: No inguinal hernias are seen. Bones: No aggressive osseous abnormality. IMPRESSION: 1. Suggestion of moderate constipation and fecal impaction. No bowel obstruction or abnormal bowel wall thickening. No free fluid free air. No abscess collection. 2. Distended stomach lumen, which could represent gastroparesis suggest clinical correlation. 3. Hepatomegaly and hepatic steatosis, no discrete hepatic lesion. MDM Narrative Medical decision making narrative: CT scan is most consistent with constipation. She was given an enema here in the emergency department and did have a bowel movement and felt better afterwards. Will discharge home with instructions That she can take a another enema as needed. Discussed return precautions. She expressed understanding and agreement. Discharge Plan Departure Patient Disposition: Home Clinical Impression: Constipation Instructions: DI for Constipation Activity Restrictions/Additional Instructions: You can try another enema at home if needed. You may need to continue to increase your fiber supplementation and also consider taking a laxative in order to prevent constipation from happening again. Return to the emergency department for new symptoms. Prescriptions: No Action chlorthalidone 25 mg tablet 25 mg PO DAILY Qty: 30 0RF aspirin 325 MG tablet 325 mg PO QDAY Qty: 0 lisinopril 20 MG tablet 40 mg PO QDAY Qty: 0 Referrals: ProviderTeodora [Primary Care Provider] - Stand Alone Forms: Patient Portal/API
[2024-01-11 00:28] LABS: Add Manual Diff / Slide Review NO; Basophils Absolute Auto 0 /uL (0-100); Basophils Percent Auto 0.5 % (0-2); Eosinophils Absolute Auto 100 /uL (0-450); Eosinophils Percent Auto 1.5 % (2-4); Hematocrit 42.2 % (36-46); Hemoglobin 14.4 g/dL (12.0-16.0); Lymphocytes Absolute Auto 1300 /uL (1100-4500); Lymphocytes Percent Auto 13.5 % (25-40); Mean Corpuscular Hemoglobin 29.2 PG (26-34); Mean Corpuscular Volume 85.8 fL (80-100); Monocytes Absolute Auto 600 /uL (0-900); Monocytes Percent Auto 5.7 % (3-14); Neutrophils Absolute Auto 7800 /uL (1500-7000); Neutrophils Percent Auto 78.8 % (50-75); Platelet Count 264 X10^3/uL (150-400); Red Blood Cell Count 4.92 X10^6/uL (4.0-5.2); Red Cell Distribution Width 13.7 % (11.6-14.8); White Blood Cell Count 9.9 X10^3/uL (4.5-11.0)
[2024-01-11 00:33] LABS: Alanine Aminotransferase 23 IU/L (<35); Albumin 3.9 g/dL (3.5-5.0); Albumin Globulin Ratio 1.1 (1.0-2.8); BUN Creatinine Ratio 17.3 (6-22); Bilirubin Total 1.3 mg/dL (0.2-1.3); Blood Urea Nitrogen 19 mg/dL (7-17); Calcium 8.8 mg/dL (8.4-10.2); Carbon Dioxide 26 mmol/L (22-32); Chloride 106 mmol/L (98-107); Estimated Glomerular Filt Rate 53 mL/min (>60); Globulin 3.4 g/dL (1.7-4.1); Glucose 197 mg/dL (80-110); Lipase 78 U/L (23-300); Sodium 140 mmol/L (137-145); Total Protein 7.3 g/dL (6.3-8.2)
[2024-01-11 00:34] VITALS: PULSE 55; RESP 14; O2SAT 96
[2024-01-11 00:35] LABS: Aspartate Aminotransferase 33 IU/L (14-36); HEMOLYSIS 56 (0-50)
[2024-01-11 00:36] LABS: Alkaline Phosphatase 39 U/L (38-126); Potassium 3.7 mmol/L (3.4-5.1)
[2024-01-11 01:00] VITALS: PULSE 59; RESP 15; O2SAT 96
[2024-01-11 01:30] VITALS: PULSE 56; RESP 15; O2SAT 96
[2024-01-11] MEDS: FLEETS ENEMA 1 EACH PR (01:40)
[2024-01-11 01:42] VITALS: PULSE 68; RESP 21
[2024-01-11 01:56] VITALS: BP 226/100
--- NOTE | 2024-01-11 02:01 | PC.NURSE ---
pt had good result from enema
== END 2024-01-11 02:05 | disposition home or self-care (01) ==
PROVIDERS: Emergency Provider Emergency Medicine
DX: K59.00 Constipation, unspecified (principal); R10.32 Left lower quadrant pain
CPT/HCPCS: 74177; 80053; 83690; 85025; 99284; Q9967

== ENCOUNTER 2025-02-22 15:52 | Emergency (ER) | payer MEDICARE, OTHER, SELFPAY ==
[2025-02-22] VITALS (22 sets, daily range): BP systolic 189–253; BP diastolic 87–130; PULSE 45–88; RESP 14–25; TEMP 36.8; O2SAT 94–98
--- NOTE | 2025-02-22 15:54 | ED_ITS ---
HPI - SOB/Dyspnea <Jaimie Luke, DO - Last Filed: 02/23/25 08:11> General Chief Complaint: Chest Pain Stated Complaint: Chest/arm pain/nausea/high bp 236/243 Time Seen by Provider: 02/22/25 15:53 Source: patient, family (Spouse), RN notes reviewed and old records reviewed Mode of arrival: Family Vehicle Limitations: no limitations History of Present Illness HPI Narrative: 74-year-old female history of hypertension currently off medication who presents with complaint of substernal chest pain radiates to her arms. She has notes she has felt a little bit clammy, she has had nausea but no vomiting. Denies shortness of breath. Denies any pleuritic chest pain. States it started a couple hours ago while walking around [place]. patient states nothing seems to make it better or worse. It has not resolved but been persistent. Denies any swelling of extremities. No issues such as diarrhea or constipation or urinary symptoms. Patient felt very lightheaded but has not had any syncopal episodes. She states she used to be on medication for hypertension but stopped it 6 months ago because it was not working. She does not take any aspirin or anticoagulants daily. She does take acetaminophen intermittently. She denies any surgeries. Reports adverse reaction to Compazine. No tobacco, alcohol or recreational drugs. Patient's primary care as of the [facility] on [facility]. patient's billet assembler is Dr. Lin. she notes she is scheduled for a procedure called renal denervation to treat her hypertension with [facility], Dr. Martinez. Related Data Home Medications ?Medication ?Instructions ?Recorded ?Confirmed aspirin 325 mg tablet 325 mg PO QDAY ##0 03/15/17 09/02/18 lisinopril 20 mg tablet 40 mg PO QDAY ##0 03/15/17 0 09/02/18 Previous Rx's ?Medication ?Instructions ?Recorded chlorthalidone 25 mg tablet 25 mg PO DAILY hypertensio n #30 09/02/18 tabs hydrochlorothiazide 12.5 mg capsule 12.5 mg PO DAILY # 30 caps 02/22/25 lisinopril 40 mg tablet 40 mg PO DAILY #30 tabs 02/11 06/07 Allergies Allergy/AdvReac Type Severity Reaction Status Date / Time No Known Allergies Allergy Verified 12/31/18 06:20 prochlorperazine (From AdvReac Agitated Verified 02/22/25 16:01 Compazine) Review of Systems <Jaimie Luke DO - Last Filed: 02/23/25 08:11> Review of Systems ROS Unobtainable: All systems reviewed & are unremarkable except as noted in HPI and below Patient History <Jaimie Luke DO - Last Filed: 02/23/25 08:11> Medical History (Updated 02/22/25 @ 20:08 by Kalina Dodson DO) Chest pain Hypertension Social History Smoking Status: Never smoker alcohol intake: never substance use type: does not use alcohol intake frequency: holidays/special occasions only Exam <Jaimie Luke DO - Last Filed: 02/23/25 08:11> Narrative Exam Narrative: GENERAL: Alert and oriented x three, no diaphoresis. HEENT: Head normocephalic, atraumatic, EOMI, pupils reactive, face symmetric, moist mucous membranes NECK: Supple, full range of motion CARDIOVASCULAR: Regular rate and rhythm without murmurs, rubs or gallops. No reproducible chest pain. Trace edema bilateral lower extremities. RESPIRATORY: Breath sounds equal bilaterally, no wheezes rales or rhonchi. No tachypnea or accessory muscle use. ABDOMEN: Soft, nontender. Normoactive bowel sounds all 4 quadrants. No guarding or rebound, rigidity, no mass : No CVA tenderness EXTREMITIES: Normal range of motion, no clubbing or edema. Neurovascularly intact NEUROLOGICAL: Cranial nerves II through XII grossly intact. Moving all extremities SKIN: Warm, dry, no petechiae, no rashes or lesions. Initial Vital Signs Initial Vital Signs: Vital Signs Temperature 98.2 F 02/22/25 16:00 Pulse Rate 69 02/22/25 16:00 Respiratory Rate 20 02/22/25 16:00 Blood Pressure 220/130 H 02/22/25 16:00 Pulse Oximetry 98 02/22/25 16:00 Oxygen Delivery Method Room Air 02/22/25 16:00 <Kalina Dodson DO - Last Filed: 02/22/25 20:44> Initial Vital Signs Initial Vital Signs: Vital Signs Temperature 98.2 F 02/22/25 16:00 Pulse Rate 69 02/22/25 16:00 Respiratory Rate 20 02/22/25 16:00 Blood Pressure 220/130 H 02/22/25 16:00 Pulse Oximetry 98 02/22/25 16:00 Oxygen Delivery Method Room Air 02/22/25 16:00 Course <Jaimiesander Luke, - Last Filed: 02/23/25 08:11> Orders Ordered: Discontinued Medications Acetaminophen (Acetaminophen 325 Mg Tablet) 975 mg PO NOW ONE Stop: 02/22/25 16:57 Last Admin: 02/22/25 17:07 Dose: 975 mg Documented By: PARVIZ Aspirin (Aspirin 81 Mg Chew Tab) 324 mg PO NOW ONE Stop: 02/22/25 16:10 Last Admin: 02/22/25 16:31 Dose: 324 mg Documented By: JO Sodium Chloride (Normal Saline 0.9%) 1,000 mls @ 125 mls/hr IV CONT JERICHO Last Infusion: 02/22/25 20:33 Dose: Infused Documented By: Admin: 02/22/25 17:51 Dose: 125 mls/hr Documented By: PARVIZ Nitroglycerin (Nitroglycerin) 50 mg in 250 mls @ 1.5 mls/hr IV TITRATE JERICHO; Protocol Nitroglycerin (Nitroglycerin 0.4 Mg Sl Tab) 0.4 mg SL [id number] PRN PRN Reason: Chest Pain Last Admin: 02/22/25 16:48 Dose: 0.4 mg Documented By: Admin: 02/22/25 16:33 Dose: 0.4 mg Documented By: JO Nitroglycerin (Nitroglycerin Oint 1 Inch/Gm Oint...G.) 0.5 inch TOP NOW ONE Stop: 02/22/25 16:55 Last Admin: 02/22/25 17:08 Dose: 0.5 inch Documented By: PARVIZ Vital Signs Vital signs: Vital Signs - 8 hr 02/22/25 16:00 02/22/25 16:03 02/22/25 16:30 Temperature 98.2 F Pulse Rate 69 64 67 Respiratory Rate 20 15 Blood Pressure 220/130 H 189/90 H Pulse Oximetry 98 98 96 Oxygen Delivery Method Room Air 02/22/25 16:33 02/22/25 16:39 02/22/25 16:39 Temperature Pulse Rate 88 68 Respiratory Rate 20 Blood Pressure 230/120 H 189/90 H Pulse Oximetry 95 Oxygen Delivery Method 02/22/25 16:45 02/22/25 16:45 02/22/25 16:48 Temperature Pulse Rate 55 L 60 Respiratory Rate 20 Blood Pressure 192/90 H 190/89 H Pulse Oximetry 95 Oxygen Delivery Method 02/22/25 16:52 02/22/25 16:52 02/22/25 17:00 Temperature Pulse Rate 59 L 54 L Respiratory Rate 14 20 Blood Pressure 190/87 H Pulse Oximetry 94 94 Oxygen Delivery Method 02/22/25 17:01 02/22/25 17:01 02/22/25 17:08 Temperature Pulse Rate 56 L 52 L Respiratory Rate Blood Pressure 250/110 H 250/110 H Pulse Oximetry 94 Oxygen Delivery Method 02/22/25 17:30 02/22/25 17:31 02/22/25 17:31 Temperature Pulse Rate 47 L 49 L Respiratory Rate 23 22 Blood Pressure 233/94 H Pulse Oximetry 95 96 Oxygen Delivery Method 02/22/25 17:35 02/22/25 17:35 02/22/25 17:54 Temperature Pulse Rate 49 L 59 L Respiratory Rate 18 18 Blood Pressure 224/98 H Pulse Oximetry 96 96 Oxygen Delivery Method 02/22/25 17:54 02/22/25 18:00 02/22/25 18:15 Temperature Pulse Rate 56 L Respiratory Rate 16 Blood Pressure 253/113 H 240/105 H Pulse Oximetry 96 Oxygen Delivery Method 02/22/25 18:15 02/22/25 18:30 02/22/25 18:30 Temperature Pulse Rate 55 L 52 L Respiratory Rate 20 16 Blood Pressure 234/105 H Pulse Oximetry 95 95 Oxygen Delivery Method 02/22/25 19:00 02/22/25 19:29 02/22/25 19:29 Temperature Pulse Rate 48 L 45 L Respiratory Rate 16 25 H Blood Pressure 235/105 H Pulse Oximetry 96 96 Oxygen Delivery Method 02/22/25 19:30 02/22/25 19:30 02/22/25 20:00 Temperature Pulse Rate 45 L 56 L Respiratory Rate 18 21 Blood Pressure 237/104 H Pulse Oximetry 96 Oxygen Delivery Method <Kalina Dodson, DO - Last Filed: 02/22/25 20:44> Orders Ordered: Discontinued Medications Acetaminophen (Acetaminophen 325 Mg Tablet) 975 mg PO NOW ONE Stop: 02/22/25 16:57 Last Admin: 02/22/25 17:07 Dose: 975 mg Documented By: PARVIZ Aspirin (Aspirin 81 Mg Chew Tab) 324 mg PO NOW ONE Stop: 02/22/25 16:10 Last Admin: 02/22/25 16:31 Dose: 324 mg Documented By: JO Sodium Chloride (Normal Saline 0.9%) 1,000 mls @ 125 mls/hr IV CONT JERICHO Last Infusion: 02/22/25 20:33 Dose: Infused Documented By: Admin: 02/22/25 17:51 Dose: 125 mls/hr Documented By: PARVIZ Nitroglycerin (Nitroglycerin) 50 mg in 250 mls @ 1.5 mls/hr IV TITRATE JERICHO; Protocol Nitroglycerin (Nitroglycerin 0.4 Mg Sl Tab) 0.4 mg SL [id number] PRN PRN Reason: Chest Pain Last Admin: 02/22/25 16:48 Dose: 0.4 mg Documented By: Admin: 02/22/25 16:33 Dose: 0.4 mg Documented By: JO Nitroglycerin (Nitroglycerin Oint 1 Inch/Gm Oint...G.) 0.5 inch TOP NOW ONE Stop: 02/22/25 16:55 Last Admin: 02/22/25 17:08 Dose: 0.5 inch Documented By: PARVIZ Vital Signs Vital signs: Vital Signs - 8 hr 02/22/25 16:00 02/22/25 16:03 02/22/25 16:30 Temperature 98.2 F Pulse Rate 69 64 67 Respiratory Rate 20 15 Blood Pressure 220/130 H 189/90 H Pulse Oximetry 98 98 96 Oxygen Delivery Method Room Air 02/22/25 16:33 02/22/25 16:39 02/22/25 16:39 Temperature Pulse Rate 88 68 Respiratory Rate 20 Blood Pressure 230/120 H 189/90 H Pulse Oximetry 95 Oxygen Delivery Method 02/22/25 16:45 02/22/25 16:45 02/22/25 16:48 Temperature Pulse Rate 55 L 60 Respiratory Rate 20 Blood Pressure 192/90 H 190/89 H Pulse Oximetry 95 Oxygen Delivery Method 02/22/25 16:52 02/22/25 16:52 02/22/25 17:00 Temperature Pulse Rate 59 L 54 L Respiratory Rate 14 20 Blood Pressure 190/87 H Pulse Oximetry 94 94 Oxygen Delivery Method 02/22/25 17:01 02/22/25 17:01 02/22/25 17:08 Temperature Pulse Rate 56 L 52 L Respiratory Rate Blood Pressure 250/110 H 250/110 H Pulse Oximetry 94 Oxygen Delivery Method 02/22/25 17:30 02/22/25 17:31 02/22/25 17:31 Temperature Pulse Rate 47 L 49 L Respiratory Rate 23 22 Blood Pressure 233/94 H Pulse Oximetry 95 96 Oxygen Delivery Method 02/22/25 17:35 02/22/25 17:35 02/22/25 17:54 Temperature Pulse Rate 49 L 59 L Respiratory Rate 18 18 Blood Pressure 224/98 H Pulse Oximetry 96 96 Oxygen Delivery Method 02/22/25 17:54 02/22/25 18:00 02/22/25 18:15 Temperature Pulse Rate 56 L Respiratory Rate 16 Blood Pressure 253/113 H 240/105 H Pulse Oximetry 96 Oxygen Delivery Method 02/22/25 18:15 02/22/25 18:30 02/22/25 18:30 Temperature Pulse Rate 55 L 52 L Respiratory Rate 20 16 Blood Pressure 234/105 H Pulse Oximetry 95 95 Oxygen Delivery Method 02/22/25 19:00 02/22/25 19:29 02/22/25 19:29 Temperature Pulse Rate 48 L 45 L Respiratory Rate 16 25 H Blood Pressure 235/105 H Pulse Oximetry 96 96 Oxygen Delivery Method 02/22/25 19:30 02/22/25 19:30 02/22/25 20:00 Temperature Pulse Rate 45 L 56 L Respiratory Rate 18 21 Blood Pressure 237/104 H Pulse Oximetry 96 Oxygen Delivery Method MDM - SOB/Dyspnea <Jaimie Luke, DO - Last Filed: 02/23/25 08:11> Lab Data 02/22/25 16:16 02/22/25 16:16 Labs: Lab Results 02/22/25 02/22/25 Range/Units 16:16 18:15 WBC 6.7 (4.5-11.0) X10^3/uL RBC 5.14 (4.0-5.2) X10^6/uL Hgb 14.7 (12.0-16.0) g/dL Hct 43.1 (36-46) % MCV 83.7 (80-100) fL MCH 28.5 (26-34) PG MCHC 34.1 (30-36) % RDW 13.4 (11.6-14.8) % Plt Count 251 (150-400) X10^3/uL Neut % (Auto) 51.8 (50-75) % Lymph % (Auto) 33.8 (25-40) % Stewart % (Auto) 8.6 (3-14) % Eos % (Auto) 5.0 H (2-4) % Baso % (Auto) 0.8 (0-2) % Neut # (Auto) 3500 (8784-6867) /uL Lymph # (Auto) 2300 (1580-4694) /uL Stewart # (Auto) 600 (0-900) /uL Eos # (Auto) 300 (0-450) /uL Baso # (Auto) 100 (0-100) /uL Sodium 140 (137-145) mmol/L Potassium 3.7 (3.4-5.1) mmol/L Chloride 104 (98-107) mmol/L Carbon Dioxide 28 (22-32) mmol/L BUN 23 H (7-17) mg/dL Creatinine 1.05 H (0.52-1.04) mg/dL Estimated GFR 56 L (>60) mL/min BUN/Creatinine Ratio 21.9 (6-22) Glucose 119 H (70-99) mg/dL Calcium 9.3 (8.4-10.2) mg/dL Magnesium 1.8 (1.6-2.3) mg/dL Total Bilirubin 0.7 (0.2-1.3) mg/dL AST 28 (14-36) IU/L ALT 17 (<35) IU/L Alkaline Phosphatase 54 (38-126) U/L Troponin I 0.013 0.017 (0.01-0.034) ng/mL NT-Pro-B Natriuret Pep 1030 H (<125) pg/mL Total Protein 7.8 (6.3-8.2) g/dL Albumin 4.3 (3.5-5.0) g/dL Globulin 3.5 (1.7-4.1) g/dL Albumin/Globulin Ratio 1.2 (1.0-2.8) Lipase 133 (23-300) U/L [facility] Narrative Medical decision making narrative: Labs patient has a normal white count, hemoglobin and platelets, creatinine is 1.05, BUN is 23 electrolytes are otherwise appropriate glucose is 119. Patient's troponin 0.013 with a BNP of 1030 Chest x-ray no acute cardiopulmonary pathology. EKG shows sinus rhythm LVH, rate of 67 IN 164 QRS of 90 QTC of 462, Patient has some flattening of T-wave in lead 1 and inverted in aVL. Patient has prior from 01/23/2023 similar appearing with a LVH with changes in V1 2 and 3 has not inverted T-waves in 1 and aVL similar today as well. CT angio chest abdomen and pelvis ordered as patient is quite hypertensive although responding to nitro. Patient is quite hypertensive upon arrival appears she can be hypertensive on prior visits as well. patient notes that she has stopped her blood pressure medications about 6 months ago. Patient notes that her blood pressure was typically a systolic of tooth 30 before she has stopped her blood pressure medications 6 months ago she has not been checking it regularly since. Patient given asa and nitro SL. Patient has a improvement of symptoms hypertension improved but was still 190 systolic patient had nitro paste placed. Patient signed out to Dr. Dodson while awaiting repeat trop/ekg and CTA. 1914 Dr. Dodson patient is signed out to me by Dr. Luke I have seen and evaluated patient myself. She reports that she has had chronic elevated blood pressure, She has had uncontrolled blood pressure for the last 15 years. She stopped taking blood pressure medication a long time ago because she said it never. Today she presented with chest pain, arm pain. She was given 2 sublingual nitroglycerin which did lower her blood pressure took away her chest pain. Blood pressure is now coming back up he has nitro paste on and continues to be chest pain-free. Blood work reviewed Troponin negative x2 0.013 repeat 0.017 BNP 1030 CBC shows no leukocytosis no anemia CMP no electrolyte abnormality creatinine 1.0 Bilirubin liver enzymes within normal limits Imaging reviewed Chest x-ray no acute cardiopulmonary process CT chest abdomen pelvis angio no aortic dissection or aneurysm no hemodynamically significant stenosis EKGs reviewed which show LVH no significant ST changes similar to prior EKGs Consult: 1929 Dr. Arciniega, on-call cardiology has reviewed records. She reports that patient has seen multiple cardiologists including billet assembler at [facility] Dr. Johnson and Dr. Lin who is in her practice. She reports that according to notes patient is intolerant to all anti hypertensive medication Dr. Lin referred her she [facility] for renal angiography. She has also been seen by Dr. Johnson [facility] Cardiology he had her on regimen of lisinopril 40 hydrochlorothiazide 12.5 amlodipine 10 and hydralazine 25 tid, according to notes she had a decrease in her blood pressure to a systolic of 1 7. It does not seen the patient is able or willing to take antihypertensive medications. And yes she has been referred to the [facility] for renal denervation procedure, but according to her data suggests limited benefit. Discussion with patient about if she would be willing to take p.o. blood pressure medication if she wants to stay in the hospital versus go home. She reports that she has been doing this for 15 years she says sometimes medication works for a short time and then it stops working. We talked about the regimen that she was on with Dr. Johnson and how that did seem to work for her however she says it only works for a short time. She would like to go home. She understands risk of chronically elevated blood pressure including heart attack stroke and other damage to her arteries. She reports that this is genetic and her mother had the same thing and lived until she was 85. At this time she does not have evidence of hypertensive emergency based on blood work but did have it symptoms of chest pain and arm pain. She is offered admission but declines. Discussed risks and benefits encouraged patient to return as needed. <Kalina Dodson, DO - Last Filed: 02/22/25 20:44> Lab Data Labs: Lab Results 02/22/25 02/22/25 Range/Units 16:16 18:15 WBC 6.7 (4.5-11.0) X10^3/uL RBC 5.14 (4.0-5.2) X10^6/uL Hgb 14.7 (12.0-16.0) g/dL Hct 43.1 (36-46) % MCV 83.7 (80-100) fL MCH 28.5 (26-34) PG MCHC 34.1 (30-36) % RDW 13.4 (11.6-14.8) % Plt Count 251 (150-400) X10^3/uL Neut % (Auto) 51.8 (50-75) % Lymph % (Auto) 33.8 (25-40) % Stewart % (Auto) 8.6 (3-14) % Eos % (Auto) 5.0 H (2-4) % Baso % (Auto) 0.8 (0-2) % Neut # (Auto) 3500 (3674-8243) /uL Lymph # (Auto) 2300 (7282-9151) /uL Stewart # (Auto) 600 (0-900) /uL Eos # (Auto) 300 (0-450) /uL Baso # (Auto) 100 (0-100) /uL Sodium 140 (137-145) mmol/L Potassium 3.7 (3.4-5.1) mmol/L Chloride 104 (98-107) mmol/L Carbon Dioxide 28 (22-32) mmol/L BUN 23 H (7-17) mg/dL Creatinine 1.05 H (0.52-1.04) mg/dL Estimated GFR 56 L (>60) mL/min BUN/Creatinine Ratio 21.9 (6-22) Glucose 119 H (70-99) mg/dL Calcium 9.3 (8.4-10.2) mg/dL Magnesium 1.8 (1.6-2.3) mg/dL Total Bilirubin 0.7 (0.2-1.3) mg/dL AST 28 (14-36) IU/L ALT 17 (<35) IU/L Alkaline Phosphatase 54 (38-126) U/L Troponin I 0.013 0.017 (0.01-0.034) ng/mL NT-Pro-B Natriuret Pep 1030 H (<125) pg/mL Total Protein 7.8 (6.3-8.2) g/dL Albumin 4.3 (3.5-5.0) g/dL Globulin 3.5 (1.7-4.1) g/dL Albumin/Globulin Ratio 1.2 (1.0-2.8) Lipase 133 (23-300) U/L Imaging Data Chest x-ray: Radiologist's Impression: PROCEDURE: XR CHEST 1V INDICATIONS: chest pain TECHNIQUE: One view of the chest was acquired. COMPARISON: None. FINDINGS: Surgical changes and devices: None. Lungs and pleura: Lungs are clear. No pleural effusions or pneumothorax. Mediastinum: Mediastinal contours appear normal. Heart size is normal. Bones and chest wall: No suspicious bony lesions. Overlying soft tissues appear unremarkable. IMPRESSION: No acute cardiopulmonary pathology. Dictated by: Odell Lin M.D. on 02/22/2025 at 16:40 CT scan - chest: Radiologist's Impression: PROCEDURE: CT ANGIO CHEST ABDOMEN PELVIS INDICATIONS: chest pain, hypertensive TECHNIQUE: Precontrast 5 mm thick sections acquired from the lung apices to the iliac crests. After the administration of intravenous contrast, 2.5 mm thick sections again acquired from the lung apices to the iliac crests. Maximum intensity projection (MIP) oblique sagittal and coronal reformats were then acquired. For radiation dose reduction, the following was used: automated exposure control. COMPARISON: [facility], CT, CT ABDOMEN PELVIS W CON, 01/11/2024, 0:43. [facility], CT, CT ANGIO ABDOMEN PELVIS, 12/18/2023, 15:47. FINDINGS: Image quality: Diagnostic. AORTA: No aortic aneurysm. No acute aortic syndrome. Mild atherosclerotic plaques are noted scattered in thoracic and abdominal aorta. CHEST: Lower Neck: No enlarged lymph nodes. Thyroid: No thyroid nodules which require sonographic evaluation. Axillae: No enlarged lymph nodes. Chest Wall: Unremarkable. Lungs and Pleura: No pneumothorax or pleural effusions. Atelectasis in anterior medial aspect of left lingular segment is seen. No consolidation or suspicious nodules. Heart: Heart size is mildly enlarged. No pericardial effusion. Thoracic Vessels: Pulmonary arteries demonstrate normal size. No intraluminal filling defects or abnormal narrowing in pulmonary arteries are seen. Mediastinum and Rosita: No enlarged lymph nodes. Esophagus: No wall thickening. No significant hiatal hernia. ABDOMEN: Liver: No solid mass. Hepatomegaly. Moderate to severe hepatic steatosis is seen. Gallbladder: No radiopaque gallstones or wall thickening. Biliary ducts: No biliary dilation. Pancreas: No ductal dilation. Spleen: Size is within normal limits. Adrenal Glands: mild diffuse adrenal thickening, no discrete adrenal nodules. Kidneys and Ureters: No hydronephrosis. No solid mass. No complex renal cystic lesion which requires follow up. Stomach and Bowel: Normal colonic caliber, without significant wall thickening. [id number] fecal stasis in the colon is seen. No abscess collection. Peritoneum: No abnormal intraperitoneal fluid. No free air. Ventral Wall: Small umbilical hernia containing fat only. Abdominal Nodes: No retroperitoneal or mesenteric adenopathy by size criteria. Vessels: Inferior vena cava is normal in size. PELVIS: Pelvic Organs: There is prior hysterectomy.. Bladder: Unremarkable. Pelvic Nodes: No enlarged lymph nodes. Miscellaneous: No inguinal hernias are seen. Bones: No aggressive appearing bony lesions. Spondylitic changes are noted throughout thoracic and lumbar spine. IMPRESSION: 1. No aortic aneurysm or dissection. Mild atherosclerotic disease in thoracic and abdominal aorta. 2. No hemodynamically significant stenosis is seen in major branches of thoracic or abdominal aorta. No pulmonary emboli. Cardiomegaly, no pericardial effusion. 3. No acute inflammatory process is seen in chest, abdomen or pelvis. 4. Chronic findings as above. Dictated by: Odell Lin M.D. on 02/22/2025 at 18:08 ECG Data Attestation: I personally reviewed and interpreted this ECG as follows: Interpretation: Sinus rhythm rate 67 left ventricular hypertrophy noted very similar to prior EKGs in 2022 EKGs 2. Sinus rhythm rate 51 similar to prior LVH noted no significant ST changes MDM Narrative Medical decision making narrative: Labs patient has a normal white count, hemoglobin and platelets, creatinine is 1.05, BUN is 23 electrolytes are otherwise appropriate glucose is 119. Patient's troponin 0.013 with a BNP of 1030 Chest x-ray no acute cardiopulmonary pathology. EKG shows sinus rhythm LVH, rate of 67 IN 164 QRS of 90 QTC of 462, Patient has some flattening of T-wave in lead 1 and inverted in aVL. Patient has prior from 01/23/2023 similar appearing with a LVH with changes in V1 2 and 3 has not inverted T-waves in 1 and aVL similar today as well. CT angio chest abdomen and pelvis ordered as patient is quite hypertensive although responding to nitro. Patient is quite hypertensive upon arrival appears she can be hypertensive on prior visits as well. patient notes that she has stopped her blood pressure medications about 6 months ago. Patient notes that her blood pressure was typically a systolic of tooth 30 before she has stopped her blood pressure medications 6 months ago she has not been checking it regularly since. Patient given asa and nitro SL. Patient has a improvement of symptoms hypertension improved but was still 190 systolic patient had nitro paste placed. Patient signed out to Dr. Dodson while awaiting repeat trop/ekg and CTA. 1914 Dr. Dodson patient is signed out to me by Dr. Luke I have seen and evaluated patient myself. She reports that she has had chronic elevated blood pressure, She has had uncontrolled blood pressure for the last 15 years. She stopped taking blood pressure medication a long time ago because she said it never. Today she presented with chest pain, arm pain. She was given 2 sublingual nitroglycerin which did lower her blood pressure took away her chest pain. Blood pressure is now coming back up he has nitro paste on and continues to be chest pain-free. Blood work reviewed Troponin negative x2 0.013 repeat 0.017 BNP 1030 CBC shows no leukocytosis no anemia CMP no electrolyte abnormality creatinine 1.0 Bilirubin liver enzymes within normal limits Imaging reviewed Chest x-ray no acute cardiopulmonary process CT chest abdomen pelvis angio no aortic dissection or aneurysm no hemodynamically significant stenosis EKGs reviewed which show LVH no significant ST changes similar to prior EKGs Consult: 1929 Dr. Arciniega, on-call cardiology has reviewed records. She reports that patient has seen multiple cardiologists including billet assembler at [facility] Dr. Johnson and Dr. Lin who is in her practice. She reports that according to notes patient is intolerant to all anti hypertensive medication Dr. Lin referred her she [facility] for renal angiography. She has also been seen by Dr. Johnson [facility] Cardiology he had her on regimen of lisinopril 40 hydrochlorothiazide 12.5 amlodipine 10 and hydralazine 25 tid, according to notes she had a decrease in her blood pressure to a systolic of 1 7. It does not seen the patient is able or willing to take antihypertensive medications. And yes she has been referred to the [facility] for renal denervation procedure, but according to her data suggests limited benefit. Discussion with patient about if she would be willing to take p.o. blood pressure medication if she wants to stay in the hospital versus go home. She reports that she has been doing this for 15 years she says sometimes medication works for a short time and then it stops working. We talked about the regimen that she was on with Dr. Johnson and how that did seem to work for her however she says it only works for a short time. She would like to go home. She understands risk of chronically elevated blood pressure including heart attack stroke and other damage to her arteries. She reports that this is genetic and her mother had the same thing and lived until she was 85. At this time she does not have evidence of hypertensive emergency based on blood work but did have it symptoms of chest pain and arm pain. She is offered admission but declines. Discussed risks and benefits encouraged patient to return as needed Discharge Plan Departure Patient Disposition: Home Clinical Impression: Hypertension Chest pain Qualifiers: Chest pain type: unspecified Qualified Code(s): R07.9 - Chest pain, unspecified Instructions: Essential Hypertension, DI for Chest Pain Activity Restrictions/Additional Instructions: *You have been diagnosed with hypertension *What to do: at this time it is recommended that you at least start taking some blood pressure medication. It has worked in the past. constantly elevated blood pressure puts you at risk for stroke heart attack and other damage to your arteries *Continue to take medications as directed-- sent to [facility] l[facility]ril 40 mg once a day hydrochlorothiazide 12.5 mg once daily amlodipine 10 mg once a day *Follow up with your primary care provider in 2-3 days or call [phone] *Return to ER if you should have increasing chest pain shortness of breath weakness arm pain headache numbness tingling difficulty speaking [or] any new, worsening or concerning symptoms Prescriptions: New lisinopril 40 mg tablet 40 mg PO DAILY Qty: 30 0RF hydrochlorothiazide 12.5 mg capsule 12.5 mg PO DAILY Qty: 30 0RF No Action chlorthalidone 25 mg tablet 25 mg PO DAILY Qty: 30 0RF aspirin 325 MG tablet 325 mg PO QDAY Qty: 0 lisinopril 20 MG tablet 40 mg PO QDAY Qty: 0 Referrals: ProviderTeodora [Primary Care Provider, Family Practice] Stand Alone Forms: Patient Portal/API
--- NOTE | 2025-02-22 15:58 | EKG_ITS ---
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
--- NOTE | 2025-02-22 16:09 | DI.RAD.S_ITS ---
PROCEDURE: XR CHEST 1V INDICATIONS: chest pain TECHNIQUE: One view of the chest was acquired. COMPARISON: None. FINDINGS: Surgical changes and devices: None. Lungs and pleura: Lungs are clear. No pleural effusions or pneumothorax. Mediastinum: Mediastinal contours appear normal. Heart size is normal. Bones and chest wall: No suspicious bony lesions. Overlying soft tissues appear unremarkable. IMPRESSION: No acute cardiopulmonary pathology. Dictated by: Odell Lin M.D. on 02/22/2025 at 16:40 Approved by: Odell Lin M.D. on 02/22/2025 at 16:41
[2025-02-22 16:25] LABS: Add Manual Diff / Slide Review NO; Hematocrit 43.1 % (36-46); Hemoglobin 14.7 g/dL (12.0-16.0); Lymphocytes Absolute Auto 2300 /uL (1100-4500); Mean Corpuscular HGB Conc 34.1 % (30-36); Mean Corpuscular Hemoglobin 28.5 PG (26-34); Mean Corpuscular Volume 83.7 fL (80-100); Platelet Count 251 X10^3/uL (150-400)
[2025-02-22] MEDS: ASPIRIN 81 MG CHEW TAB 324 MG PO (16:31)
[2025-02-22] MEDS: NITROGLYCERIN 0.4 MG SL TAB SL ×2 (16:33→16:48)
[2025-02-22 16:35] LABS: Alanine Aminotransferase 17 IU/L (<35); Albumin 4.3 g/dL (3.5-5.0); Albumin Globulin Ratio 1.2 (1.0-2.8); Alkaline Phosphatase 54 U/L (38-126); Blood Urea Nitrogen 23 mg/dL (7-17); Calcium 9.3 mg/dL (8.4-10.2); Carbon Dioxide 28 mmol/L (22-32); Chloride 104 mmol/L (98-107); Estimated Glomerular Filt Rate 56 mL/min (>60); Globulin 3.5 g/dL (1.7-4.1); Glucose 119 mg/dL (70-99); HEMOLYSIS 20 (0-50); Lipase 133 U/L (23-300); Magnesium 1.8 mg/dL (1.6-2.3); Potassium 3.7 mmol/L (3.4-5.1); Sodium 140 mmol/L (137-145); Total Protein 7.8 g/dL (6.3-8.2)
[2025-02-22 16:47] LABS: NT-proBNP (BNP-Adult 18+) 1030 pg/mL (<125); Troponin I 0.013 ng/mL (0.01-0.034)
[2025-02-22] MEDS: ACETAMINOPHEN 325 MG TABLET 975 MG PO (17:07)
[2025-02-22] MEDS: NITROGLYCERIN OINT 1 INCH/GM OINT...G. 0.5 INCH TOP (17:08)
--- NOTE | 2025-02-22 17:27 | DI.CT.S_ITS ---
PROCEDURE: CT ANGIO CHEST ABDOMEN PELVIS INDICATIONS: chest pain, hypertensive TECHNIQUE: Precontrast 5 mm thick sections acquired from the lung apices to the iliac crests. After the administration of intravenous contrast, 2.5 mm thick sections again acquired from the lung apices to the iliac crests. Maximum intensity projection (MIP) oblique sagittal and coronal reformats were then acquired. For radiation dose reduction, the following was used: automated exposure control. COMPARISON: [facility], CT, CT ABDOMEN PELVIS W CON, 01/11/2024, 0:43. [facility], CT, CT ANGIO ABDOMEN PELVIS, 12/18/2023, 15:47. FINDINGS: Image quality: Diagnostic. AORTA: No aortic aneurysm. No acute aortic syndrome. Mild atherosclerotic plaques are noted scattered in thoracic and abdominal aorta. CHEST: Lower Neck: No enlarged lymph nodes. Thyroid: No thyroid nodules which require sonographic evaluation. Axillae: No enlarged lymph nodes. Chest Wall: Unremarkable. Lungs and Pleura: No pneumothorax or pleural effusions. Atelectasis in anterior medial aspect of left lingular segment is seen. No consolidation or suspicious nodules. Heart: Heart size is mildly enlarged. No pericardial effusion. Thoracic Vessels: Pulmonary arteries demonstrate normal size. No intraluminal filling defects or abnormal narrowing in pulmonary arteries are seen. Mediastinum and Rosita: No enlarged lymph nodes. Esophagus: No wall thickening. No significant hiatal hernia. ABDOMEN: Liver: No solid mass. Hepatomegaly. Moderate to severe hepatic steatosis is seen. Gallbladder: No radiopaque gallstones or wall thickening. Biliary ducts: No biliary dilation. Pancreas: No ductal dilation. Spleen: Size is within normal limits. Adrenal Glands: mild diffuse adrenal thickening, no discrete adrenal nodules. Kidneys and Ureters: No hydronephrosis. No solid mass. No complex renal cystic lesion which requires follow up. Stomach and Bowel: Normal colonic caliber, without significant wall thickening. Ndol-pe-pjodfzhv fecal stasis in the colon is seen. No abscess collection. Peritoneum: No abnormal intraperitoneal fluid. No free air. Ventral Wall: Small umbilical hernia containing fat only. Abdominal Nodes: No retroperitoneal or mesenteric adenopathy by size criteria. Vessels: Inferior vena cava is normal in size. PELVIS: Pelvic Organs: There is prior hysterectomy.. Bladder: Unremarkable. Pelvic Nodes: No enlarged lymph nodes. Miscellaneous: No inguinal hernias are seen. Bones: No aggressive appearing bony lesions. Spondylitic changes are noted throughout thoracic and lumbar spine. IMPRESSION: 1. No aortic aneurysm or dissection. Mild atherosclerotic disease in thoracic and abdominal aorta. 2. No hemodynamically significant stenosis is seen in major branches of thoracic or abdominal aorta. No pulmonary emboli. Cardiomegaly, no pericardial effusion. 3. No acute inflammatory process is seen in chest, abdomen or pelvis. 4. Chronic findings as above. Dictated by: Odell Lin M.D. on 02/22/2025 at 18:08 Approved by: Odell Lin M.D. on 02/22/2025 at 18:12
[2025-02-22] MEDS: SODIUM CHLORIDE 0.9% 1,000 ML 125 ML IV (17:51)
--- NOTE | 2025-02-22 18:21 | EKG_ITS ---
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
[2025-02-22 18:53] LABS: Troponin I 0.017 ng/mL (0.01-0.034)
== END 2025-02-22 20:20 | disposition home or self-care (01) ==
PROVIDERS: Emergency Medicine; Emergency Provider Emergency Medicine
DX: I10 Essential (primary) hypertension (principal); R07.9 Chest pain, unspecified; R11.0 Nausea; R42 Dizziness and giddiness
CPT/HCPCS: 36415; 71045; 71275; 74174; 80053; 83690; 83735; 83880; 84484; 85025; 93005; 96360; 96361; 99284; J7030